=== PATIENT | male | born 1970 | race African-American/Black ===

== ENCOUNTER 2022-04-17 04:56 | Observation (INO) ==
[2022-04-17 05:50] LABS: Basophils % 0.3 %; Eosinophils % 0.1 %; Hematocrit 50.4 % (37.5-50.1); Hemoglobin 16.8 g/dL (12.9-16.9); Immature Granulocytes % 0.4 % (0-4); Lymphocytes # 2.2 K/mcL (0.6-4.6); Mean Corpuscular HGB Conc 33.3 g/dL (31.6-35.5); Mean Corpuscular Hemoglobin 31.8 pg (28.0-33.3); Mean Corpuscular Volume 95.5 fL (83.0-100.0); Mean Platelet Volume 9.2 fL (9.4-12.4); Monocytes # 2.1 K/mcL (0.0-1.3); Monocytes % 13.1 %; Neutrophils # 11.4 K/mcL (1.6-8.9); Platelet Count 200 K/mcL (140-400); Red Blood Count 5.28 M/mcL (4.19-5.50); Red Cell Distribution Width 13.2 % (11.5-14.5); Segmented Neutrophils % 72.1 %; White Blood Count 15.8 K/mcL (4.3-11.1)
[2022-04-17 06:18] LABS: BUN/Creatinine Ratio 13 (6-26); Blood Urea Nitrogen 17 mg/dL (6-20); Calcium 9.5 mg/dL (8.6-10.3); Carbon Dioxide 24 mEq/L (23-29); Chloride 102 mEq/L (98-107); Glucose 130 mg/dL (70-105); Osmolality,Calculated 281 (280-300); Potassium 3.8 mEq/L (3.5-5.1); Sodium 134 mEq/L (136-145); Troponin I 0.04 ng/mL (< 0.04); eGFR For African Americans > 60 (> 60); eGFR For Non-African Americans 55 (> 60)
[2022-04-17 06:22] LABS: Influenza A PCR Negative (Negative); Influenza B PCR Negative (Negative); Resp. Syncytial Virus PCR Negative (Negative)
[2022-04-17 06:27] LABS: SARS-CoV-2 by PCR (In House) Negative (Negative)
[2022-04-17] MEDS ORDERED: Iopamidol - 370 500 ML MLS IVP ONE ×2 (08:16→14:07)
[2022-04-17] MEDS ORDERED: Prochlorperazine 10 MG/2 ML VIAL IVP ONE (08:29)
[2022-04-17] MEDS ORDERED: 0.9 % Sodium Chloride 1,000 ML IV ONE (08:29)
[2022-04-17 09:01] LABS: Bilirubin,Urine Negative (Negative); Blood,Urine Negative (Negative); Clarity,Urine Clear (Clear); Color,Urine Yellow (Yellow); Glucose,Urine (UA) Normal (Normal); Ketones,Urine Negative (Negative); Leukocyte Esterase,Urine Negative (Negative); Nitrite,Urine Negative (Negative); PH,Urine 6.5 pH Units (5.0-8.0); Protein,Urine Trace mg/dL (Neg-Trace); Urobilinogen,Urine Normal (Normal)
[2022-04-17 09:09] LABS: INR 1.2; Prothrombin Time 13.9 Seconds (9.4-12.1)
[2022-04-17] MEDS ORDERED: Aspirin 325 MG TABLET PO ONE (09:36)
[2022-04-17] MEDS ORDERED: cefTRIAXone 2,000 MG in 0.9 % Sodium Chloride Mini Bag 100 ML IVPB ONE (10:08)
[2022-04-17] MEDS ORDERED: Naloxone 0.4 MG/ML INJ IVP PRN (10:16)
[2022-04-17] MEDS ORDERED: Ondansetron 4 MG/2 ML VIAL IVP PRN (10:16)
[2022-04-17] MEDS ORDERED: Perflutren Lipid Microsphere 1.3 ML in 0.9 % Sodium Chloride 8.7 ML IVP PRN ×2 (10:27→18:59)
[2022-04-17] MEDS ORDERED: *HR* Dextrose 50 % in Water (Syg) 50 ML SYRINGE IVP PRN (10:56)
[2022-04-17] MEDS ORDERED: D5% in Water 1,000 ML IVC PRN (10:56)
[2022-04-17] MEDS ORDERED: Dextrose Gel 15 GM/37.5 ML TUBE PO PRN ×2 (10:56)
[2022-04-17] MEDS ORDERED: Vancomycin 1,250 MG/262.5 ML IV.SOLN IVPB ONE (11:00)
[2022-04-17 11:29] LABS: Adenovirus Not Detected (Not Detect); Bordetella Pertussis Not Detected (Not Detect); Chlamydophila pneumoniae Not Detected (Not Detect); Coronavirus 229E Not Detected (Not Detect); Coronavirus HKU1 Not Detected (Not Detect); Coronavirus NL63 Not Detected (Not Detect); Coronavirus OC43 Not Detected (Not Detect); Human Metapneumovirus Not Detected (Not Detect); Human Rhinovirus/Enterovirus Not Detected (Not Detect); Influenza A Subtype 2009 H1 Not Detected (Not Detect); Influenza B Not Detected (Not Detect); Mycoplasma pneumoniae Not Detected (Not Detect); Parainfluenza Virus 1 Not Detected (Not Detect); Parainfluenza Virus 2 Not Detected (Not Detect); Parainfluenza Virus 3 Not Detected (Not Detect); Parainfluenza Virus 4 Not Detected (Not Detect); Respiratory Syncytial Virus Not Detected (Not Detect); SARS-CoV-2 Not Detected (Not Detect)
[2022-04-17 12:17] LABS: Estimated Average Glucose 128 mg/dl; Hemoglobin A1C 6.1 %
[2022-04-17 12:24] LABS: Glucose,CSF 83 mg/dL (40-70); Total Protein,CSF 44 mg/dL (15-45)
[2022-04-17 12:28] LABS: Red Blood Cell,CSF 2000 RBC/mcL
[2022-04-17 12:29] LABS: Red Blood Cell,CSF < 2000 RBC/mcL
[2022-04-17 12:31] LABS: Appearance,CSF Clear (Clear)
[2022-04-17 12:31] LABS: Appearance,CSF Clear (Clear)
[2022-04-17] MEDS ORDERED: Azithromycin 500 MG in 0.9 % Sodium Chloride 250 ML IVPB SCH (14:00)
[2022-04-17 14:02] LABS: Basophils,CSF 0 %; Eosinophils,CSF 0 %
[2022-04-17] MEDS: 0.9 % Sodium Chloride 1,000 ML IVC SCH (14:11)
[2022-04-17] MEDS: *HR* Heparin 5,000 UNIT/ML VIAL SQ SCH ×2 (14:23→20:39)
[2022-04-17] MEDS: Insulin LISPRO 300 UNITS/3 ML VIAL SUBQ SCH ×3 (14:37→20:40)
[2022-04-17] MEDS ORDERED: Acyclovir 700 MG in D5% in Water 100 ML IVPB SCH (16:00)
[2022-04-17] MEDS: Ipratropium/Albuterol Neb 3 ML IH SCH ×2 (16:50→21:28)
[2022-04-18 01:55] LABS: Basophils # 0.1 K/mcL (0.0-0.2); Basophils % 0.4 %; Eosinophils % 0.4 %; Hematocrit 44.5 % (37.5-50.1); Immature Granulocytes % 0.3 % (0-4); Lymphocytes # 1.8 K/mcL (0.6-4.6); Lymphocytes % 16.3 %; Mean Corpuscular Hemoglobin 31.5 pg (28.0-33.3); Mean Corpuscular Volume 95.3 fL (83.0-100.0); Mean Platelet Volume 9.4 fL (9.4-12.4); Monocytes # 1.4 K/mcL (0.0-1.3); Monocytes % 12.5 %; Neutrophils # 7.8 K/mcL (1.6-8.9); Platelet Count 168 K/mcL (140-400); Red Blood Count 4.67 M/mcL (4.19-5.50); Segmented Neutrophils % 70.1 %; White Blood Count 11.2 K/mcL (4.3-11.1)
[2022-04-18 01:57] LABS: Hemoglobin 14.7 g/dL (12.9-16.9)
[2022-04-18] MEDS: 0.9 % Sodium Chloride 1,000 ML IVC SCH (03:26)
[2022-04-18] MEDS: Ipratropium/Albuterol Neb 3 ML IH SCH ×4 (03:46→21:36)
[2022-04-18 04:00] LABS: Alanine Aminotransferase 23 Units/L (7-52); Albumin 3.6 g/dL (3.5-5.7); Albumin/Globulin Ratio 1.2 (1.1-2.2); Alkaline Phosphatase 63 Units/L (34-104); Aspartate Amino Transferase 23 Units/L (13-39); BUN/Creatinine Ratio 15 (6-26); Bilirubin,Total 0.5 mg/dL (0.3-1.0); Blood Urea Nitrogen 19 mg/dL (6-20); Calcium 8.9 mg/dL (8.6-10.3); Carbon Dioxide 24 mEq/L (23-29); Chloride 105 mEq/L (98-107); Chol/HDL Ratio 2.2 (0-4.9); Cholesterol 114 mg/dL (< 200); Globulin 3.1 g/dL (2.4-3.5); Glucose 122 mg/dL (70-105); HDL Cholesterol 53 mg/dL (40-59); LDL Cholesterol,Calculated 37 mg/dL (< 100); Osmolality,Calculated 284 (280-300); Potassium 3.9 mEq/L (3.5-5.1); Sodium 135 mEq/L (136-145); Total Protein 6.7 g/dL (6.4-8.9); Triglycerides 118 mg/dL (< 150); eGFR For African Americans > 60 (> 60); eGFR For Non-African Americans 58 (> 60)
[2022-04-18] MEDS: *HR* Heparin 5,000 UNIT/ML VIAL SQ SCH ×3 (05:01→20:47)
[2022-04-18] MEDS: Insulin LISPRO 300 UNITS/3 ML VIAL SUBQ SCH ×4 (07:41→20:58)
[2022-04-18] MEDS: Pantoprazole 40 MG VIAL IVP SCH (08:54)
[2022-04-18] MEDS: cefTRIAXone 2,000 MG in 0.9 % Sodium Chloride Mini Bag 100 ML IVPB SCH (08:54)
[2022-04-18] MEDS: Vancomycin 1,500 MG/265 ML IV.SOLN IVPB SCH (11:24)
[2022-04-18] MEDS: Acetaminophen 325 MG TABLET PO PRN (14:12)
[2022-04-19 02:59] LABS: Basophils % 0.4 %; Eosinophils # 0.1 K/mcL (0.0-0.6); Eosinophils % 1.5 %; Hematocrit 44.5 % (37.5-50.1); Hemoglobin 14.7 g/dL (12.9-16.9); Immature Granulocytes % 0.3 % (0-4); Lymphocytes # 1.7 K/mcL (0.6-4.6); Lymphocytes % 22.8 %; Mean Corpuscular Volume 96.7 fL (83.0-100.0); Mean Platelet Volume 9.6 fL (9.4-12.4); Monocytes # 0.8 K/mcL (0.0-1.3); Monocytes % 11.3 %; Neutrophils # 4.7 K/mcL (1.6-8.9); Platelet Count 177 K/mcL (140-400); Red Cell Distribution Width 12.8 % (11.5-14.5); Segmented Neutrophils % 63.7 %; White Blood Count 7.4 K/mcL (4.3-11.1)
[2022-04-19] MEDS: Ipratropium/Albuterol Neb 3 ML IH SCH ×4 (03:00→20:29)
[2022-04-19 03:18] LABS: BUN/Creatinine Ratio 8 (6-26); Blood Urea Nitrogen 10 mg/dL (6-20); Calcium 9.3 mg/dL (8.6-10.3); Carbon Dioxide 28 mEq/L (23-29); Chloride 103 mEq/L (98-107); Glucose 162 mg/dL (70-105); Osmolality,Calculated 289 (280-300); Potassium 3.6 mEq/L (3.5-5.1); Sodium 138 mEq/L (136-145); eGFR For African Americans > 60 (> 60); eGFR For Non-African Americans > 60 (> 60)
[2022-04-19] MEDS: Acetaminophen 325 MG TABLET PO PRN (04:38)
[2022-04-19] MEDS: *HR* Heparin 5,000 UNIT/ML VIAL SQ SCH ×3 (05:38→21:20)
[2022-04-19] MEDS: Insulin LISPRO 300 UNITS/3 ML VIAL SUBQ SCH ×4 (07:18→21:20)
[2022-04-19] MEDS: Pantoprazole 40 MG VIAL IVP SCH (07:59)
[2022-04-19] MEDS: cefTRIAXone 2,000 MG in 0.9 % Sodium Chloride Mini Bag 100 ML IVPB SCH (09:35)
[2022-04-19] MEDS: Vancomycin 1,500 MG/265 ML IV.SOLN IVPB SCH (12:59)
[2022-04-19] MEDS: Aspirin Enteric Coated 81 MG Tablet PO SCH (17:19)
[2022-04-19] MEDS: lisinopriL 10 MG TABLET PO SCH (17:19)
[2022-04-20] MEDS: Ipratropium/Albuterol Neb 3 ML IH SCH ×2 (04:10→10:28)
[2022-04-20] MEDS: *HR* Heparin 5,000 UNIT/ML VIAL SQ SCH (05:51)
[2022-04-20 07:21] VITALS: BP 152/52; PULSE 80; TEMP 97.6; O2SAT 95
[2022-04-20] MEDS: Insulin LISPRO 300 UNITS/3 ML VIAL SUBQ SCH (08:01)
[2022-04-20] MEDS: Pantoprazole 40 MG VIAL IVP SCH (09:18)
[2022-04-20] MEDS: Aspirin Enteric Coated 81 MG Tablet PO SCH (09:19)
[2022-04-20] MEDS: lisinopriL 10 MG TABLET PO SCH (09:19)
[2022-04-20 09:52] LABS: Basophils % 0.6 %; Eosinophils # 0.2 K/mcL (0.0-0.6); Eosinophils % 2.9 %; Hematocrit 48.4 % (37.5-50.1); Hemoglobin 15.8 g/dL (12.9-16.9); Immature Granulocytes % 0.6 % (0-4); Lymphocytes # 1.7 K/mcL (0.6-4.6); Lymphocytes % 23.8 %; Mean Corpuscular HGB Conc 32.6 g/dL (31.6-35.5); Mean Corpuscular Hemoglobin 31.5 pg (28.0-33.3); Mean Corpuscular Volume 96.6 fL (83.0-100.0); Mean Platelet Volume 9.2 fL (9.4-12.4); Monocytes # 0.7 K/mcL (0.0-1.3); Monocytes % 9.3 %; Neutrophils # 4.6 K/mcL (1.6-8.9); Platelet Count 217 K/mcL (140-400); Red Blood Count 5.01 M/mcL (4.19-5.50); Red Cell Distribution Width 12.7 % (11.5-14.5); Segmented Neutrophils % 62.8 %; White Blood Count 7.2 K/mcL (4.3-11.1)
[2022-04-20 10:07] LABS: BUN/Creatinine Ratio 13 (6-26); Blood Urea Nitrogen 15 mg/dL (6-20); Calcium 9.1 mg/dL (8.6-10.3); Carbon Dioxide 23 mEq/L (23-29); Chloride 101 mEq/L (98-107); Glucose 170 mg/dL (70-105); Osmolality,Calculated 281 (280-300); Sodium 133 mEq/L (136-145); eGFR For African Americans > 60 (> 60); eGFR For Non-African Americans > 60 (> 60)
[2022-04-21 11:24] LABS: HSV 1 Glycoprotein G IgG CSF 0.6 IV (<=0.89)
== END 2022-04-20 11:10 | disposition home or self-care (01) ==
LOC: 3BNU 04:56 → EMEROOARM 04:56 → 3BNU 13:38
PROVIDERS: ADMIT General Practice; ATTEND General Practice